=== PATIENT | female | born 1945 | race Caucasian/White ===

== ENCOUNTER 2019-12-13 18:02 | Observation (INO) | payer MEDICARE, OTHER ==
[2019-12-13 19:28] LABS: ABSOLUTE EOSINOPHILS # (AUTO) 0.1 10^3/uL (0.0-0.6); ABSOLUTE LYMPHOCYTES (AUTO) 1.8 10^3/uL (0.5-4.7); ABSOLUTE MONOCYTES (AUTO) 0.4 10^3/uL (0.1-1.4); ABSOLUTE NEUT (AUTO) 3.1 10^3/uL (1.7-8.2); BASOPHILS % (AUTO) 0.7 % (0-2); EOSINOPHILS % (AUTO) 1.7 % (0-6); HEMATOCRIT 32.6 % (36.0-47.0); LYMPHOCYTES % (AUTO) 33.3 % (13-45); MEAN CORPUSCULAR HEMOGLOBIN 31.7 pg (27.0-33.4); MEAN CORPUSCULAR HGB CONC 33.8 g/dL (32.0-36.0); MEAN CORPUSCULAR VOLUME 94 fl (80-97); MONOCYTES % (AUTO) 7.7 % (3-13); PLATELET COUNT 267 10^3/uL (150-450); RED BLOOD COUNT 3.47 10^6/uL (3.72-5.28); RED CELL DISTRIBUTION WIDTH 14.6 % (11.5-14.0); SEGMENTED NEUTROPHILS % (AUTO) 56.6 % (42-78); TOTAL CELLS COUNTED % (AUTO) 100 %; WHITE BLOOD COUNT 5.4 10^3/uL (4.0-10.5)
[2019-12-13 19:43] LABS: ALBUMIN 3.3 g/dL (3.5-5.0); ALKALINE PHOSPHATASE 178 U/L (38-126); ANION GAP 9 (5-19); ASPARTATE AMINO TRANSFERASE 34 U/L (14-36); BILIRUBIN,TOTAL 0.2 mg/dL (0.2-1.3); BLOOD UREA NITROGEN 21 mg/dL (7-20); CALCIUM 8.2 mg/dL (8.4-10.2); CARBON DIOXIDE 24 mmol/L (22-30); CHLORIDE 100 mmol/L (98-107); GLUCOSE 326 mg/dL (75-110); POTASSIUM 4.3 mmol/L (3.6-5.0); TOTAL PROTEIN 6.7 g/dL (6.3-8.2)
[2019-12-13] MEDS ORDERED: NORMAL SALINE 1000 ML 1,000 ML IV ONE ×2 (20:12→20:42)
--- NOTE | 2019-12-13 20:12 | ER Document Report ---
ED General - General Chief Complaint: High Blood Sugar Stated Complaint: HYPERGLYCEMIA Time Seen by Provider: 12/13/19 20:10 Mode of Arrival: Medic Information source: Patient TRAVEL OUTSIDE OF THE [place] IN LAST 30 DAYS: No - HPI Onset: Other - over the last 1-2 days Onset/Duration: Gradual Quality of pain: Achy Severity: Moderate Pain Level: 1 Associated symptoms: Body/muscle aches, Chills, Fever Exacerbated by: Denies Relieved by: Denies Similar symptoms previously: No Recently seen / treated by doctor: No Notes: 74 year old female with a history of DM, HTN, COPD, Arthritis brought to the ER by EMS for generalized weakness, hyperglycemia, and concern of possible having a UTI/kidney infection. The patient has been taking her medications as prescribed and she says her blood sugar only was high today. One read at home was above 500. The patient says she has been around someone with the Flu and she is having some mild body aches, chills, and subjective fevers. The patient lives at home with her daughter who is currently out of town in [place]. The patient usually cares for herself. - Related Data Allergies/Adverse Reactions: Penicillins Allergy (Verified 12/13/19 18:13) Home Medications: Lantus, Humalog, Omeprazole, metformin, Duloetine, Metropolol, mitrazipine, atorovastatin, risperidone, mematine Past Medical History - General Information source: Patient - Social History Smoking Status: Former Smoker Chew tobacco use (# tins/day): No Frequency of alcohol use: None Drug Abuse: None Lives with: Family - live with her daughter Family History: Reviewed & Not Pertinent Patient has suicidal ideation: No Patient has homicidal ideation: No - Past Medical History Cardiac Medical History: Reports: Hx Hypertension Pulmonary Medical History: Reports: Hx COPD Denies: Hx Tuberculosis Endocrine Medical History: Reports: Hx Diabetes Mellitus Type 2 Musculoskeletal Medical History: Reports Hx Arthritis Past Surgical History: Reports: Hx Section - x2, Hx Cholecystectomy, Hx Hysterectomy, Hx Tonsillectomy. Denies: Hx Appendectomy, Hx Bowel Surgery, Hx Coronary Artery Bypass Graft, Hx Gastric Bypass Surgery, Hx Herniorrhaphy, Hx Mastectomy, Hx Pacemaker, Hx Tubal Ligation - Immunizations Hx Diphtheria, Pertussis, Tetanus Vaccination: Yes Hx Pneumococcal Vaccination: 08/10/11 Review of Systems - Review of Systems Constitutional: Chills, Fever, Other - high blood sugars EENT: No symptoms reported Cardiovascular: No symptoms reported Respiratory: No symptoms reported Gastrointestinal: No symptoms reported Genitourinary: Dysuria, Frequency, Urgency Female Genitourinary: No symptoms reported Musculoskeletal: Other - body aches Skin: No symptoms reported Hematologic/Lymphatic: No symptoms reported Neurological/Psychological: No symptoms reported -: Yes All other systems reviewed and negative Physical Exam - Vital signs Vitals: Temp Pulse Resp BP Pulse Ox 98.2 F 76 18 140/78 H 98 12/13/19 18:20 12/13/19 18:20 12/13/19 18:20 12/13/19 18:20 12/13/19 18:20 - Notes Notes: GENERAL: Well-appearing, well-nourished and in no acute distress. HEAD: Atraumatic, normocephalic. EYES: Pupils equal round and reactive to light, extraocular movements intact, sclera anicteric, conjunctiva are normal. ENT: TMs normal, nares patent, oropharynx clear without exudates. Moist mucous membranes. NECK: Normal range of motion, supple without lymphadenopathy or JVD. LUNGS: Breath sounds clear to auscultation bilaterally and equal. No wheezes rales or rhonchi. HEART: Regular rate and rhythm without murmurs, rubs or gallops. ABDOMEN: Soft, nontender, normoactive bowel sounds. No guarding, no rebound. No masses appreciated. EXTREMITIES: Normal range of motion, no pitting or edema. No clubbing or cyanosis. NEUROLOGICAL: Cranial nerves II through XII grossly intact. Normal speech, normal gait. PSYCH: Normal mood, normal affect. SKIN: Warm, Dry, normal turgor, no rashes or lesions noted. Course - Re-evaluation Re-evalutation: 12/13/19 21:25 The patient has a UTI and subsequent hyperglycemia and acute kidney injury. The patient was treated in the ER with IV Fluids and IV Rocephin. Patient is slightly confused/delirious so will seek an OBs admission at this time. 12/14/19 03:[address] Reyez refused to the admit the patient because he felt the patient did not meet inpatient criteria. Will therefore hold the patient in the ER as a social hold given her family apparently has concerns about her caring for herself at home. Patient will need to be treated with antibiotics to cover for UTI pathogens if she is discharged from the ER after case management sees her. Patient signed out to oncoming ER provider at shift change. - Vital Signs Vital signs: Temp Pulse Resp BP Pulse Ox 98.2 F 76 18 140/78 H 98 12/13/19 18:20 12/13/19 18:20 12/13/19 18:20 12/13/19 18:20 12/13/19 18:20 - Laboratory Result Diagrams: 12/13/19 19:06 12/13/19 19:06 Laboratory results interpreted by me: 12/13/19 12/13/19 12/13/19 18:30 19:04 19:06 RBC 3.47 L Hgb 11.0 L Hct 32.6 L RDW 14.6 H Sodium BUN Creatinine Est GFR ( Amer) Est GFR (MDRD) Non-Af Glucose POC Glucose 393 H Calcium Alkaline Phosphatase Albumin Urine Glucose (UA) >=500 H Urine Blood SMALL H Ur Leukocyte Esterase LARGE H 12/13/19 12/13/19 19:06 21:30 RBC Hgb Hct RDW Sodium 133.0 L BUN 21 H Creatinine 1.45 H Est GFR ( Amer) 43 L Est GFR (MDRD) Non-Af 35 L Glucose 326 H POC Glucose 330 H Calcium 8.2 L Alkaline Phosphatase 178 H Albumin 3.3 L Urine Glucose (UA) Urine Blood Ur Leukocyte Esterase Discharge - Discharge Clinical Impression: Hyperglycemia UTI (urinary tract infection) Qualifiers: Urinary tract infection type: site unspecified Hematuria presence: without hematuria Qualified Code(s): N39.0 - Urinary tract infection, site not specified Acute kidney failure Qualifiers: Acute renal failure type: unspecified Qualified Code(s): N17.9 - Acute kidney failure, unspecified Condition: Stable Disposition: HOME, SELF-CARE
[2019-12-13 20:46] LABS: APPEARANCE,URINE CLOUDY; BILIRUBIN,URINE NEGATIVE (NEGATIVE); COLOR,URINE YELLOW; GLUCOSE, URINE >=500 mg/dL (NEGATIVE); KETONES,URINE NEGATIVE (NEGATIVE); LEUKOCYTE ESTERASE,URINE LARGE (NEGATIVE); NITRITE,URINE NEGATIVE (NEGATIVE); PROTEIN,URINE NEGATIVE (NEGATIVE); URINE SPECIFIC GRAVITY 1.006; UROBILINOGEN,URINE NEGATIVE mg/dL (<2.0)
[2019-12-13] MEDS ORDERED: CEFTRIAXONE INJ 1000 MG VIAL IV ONE (21:24)
[2019-12-13 21:42] LABS: A TYPE INFLUENZA AG NEGATIVE (NEGATIVE); B INFLUENZA AG NEGATIVE (NEGATIVE)
[2019-12-14] MEDS ORDERED: INSULIN REG, HUMAN 100 UNIT/ML 3 ML VIAL (PYX) SUBCUT ONE (05:11)
[2019-12-14] MEDS ORDERED: ONDANSETRON 4 MG TAB.RAPDIS PO PRN (08:37)
[2019-12-14] MEDS ORDERED: MAG HYDROX/AL HYDROX/SIMETH SUSP 30 ML UDCUP PO PRN (08:37)
[2019-12-14] MEDS ORDERED: IPRATROPIUM/ALBUTEROL 0.5-2.5 MG/3 ML AMPUL NEB PRN (08:37)
[2019-12-14] MEDS ORDERED: ZOLPIDEM TARTRATE 5 MG TABLET PO PRN (08:37)
[2019-12-14] MEDS ORDERED: DEXTROSE 50%-WATER 25 GM/50 ML DISP.SYRIN IV PRN ×2 (08:44)
[2019-12-14] MEDS ORDERED: DEXTROSE 40% GEL 15 GM TUBE PO PRN ×2 (08:44)
[2019-12-14] MEDS ORDERED: GLUCAGON,HUMAN RECOMB 1 MG INJ IM PRN (08:44)
--- NOTE | 2019-12-14 08:53 | PDOC H&P ---
History of Present Illness Admission Date/PCP: 12/13/19 22:06 Patient complains of: Urinary tract infection, uncontrolled diabetes mellitus type 2 History of Present Illness: AMAURY DOMINGO is a 74 year old female with history of myocardial infarction, hypertension, COPD, gastroesophageal reflux disease, depression and diabetes mellitus. She states that yesterday she began having suprapubic discomfort that radiated bilaterally. She denied any fevers, chills but does feel thirsty. She admits to some memory loss but she does have underlying dementia and she does not believe this is any worse than her baseline. She denies dysuria and admits that with her diabetes she has had urinary tract infections in the past. It is also probable that an acute infection could worsen her dementia. Past Medical History Cardiac Medical History: Reports: Myocardial Infarction, Hypertension Denies: Atrial Fibrillation, Congestive Heart Failure Pulmonary Medical History: Reports: Chronic Obstructive Pulmonary Disease (COPD) Denies: Tuberculosis EENT Medical History: Denies: Ears, Nose, Throat Neurological Medical History: Denies: Ischemic CVA Endocrine Medical History: Reports: Diabetes Mellitus Type 2 GI Medical History: Reports: Gastroesophageal Reflux Disease Musculoskeltal Medical History: Reports: Arthritis Psychiatric Medical History: Reports: Dementia, Depression Denies: Alcohol Dependency, Tobacco Dependency Traumatic Medical History: Reports: None Hematology: Denies: Anemia, Bleeding Tendencies Infectious Medical History: Reports: None Past Surgical History Past Surgical History: Reports: Appendectomy, Section - x2, Cholecystectomy, Hysterectomy, Tonsillectomy Denies: Coronary Artery Bypass Graft, Gastric Bypass Surgery, Herniorrhaphy, Mastectomy, Pacemaker, Tubal Ligation Social History Information Source: Patient, [facility] Records Lives with: Family - live with her daughter Smoking Status: Former Smoker Electronic Cigarette use?: No Frequency of Alcohol Use: None Hx Recreational Drug Use: No Hx Prescription Drug Abuse: No - Advance Directive Resuscitation Status: Do Not Resuscitate Family History Family History: CAD, DM Parental Family History Reviewed: Yes Children Family History Reviewed: Yes Sibling(s) Family History Reviewed.: Yes Medication/Allergy Home Medications: Atorvastatin Calcium [Lipitor 40 mg Tablet] 40 mg PO DAILY 12/14/19 Duloxetine HCl [Cymbalta 20 Mg Capsule.Dr] 20 mg PO DAILY 12/14/19 Ergocalciferol (Vitamin D2) [Vitamin D2] 50 mcg PO WE@1000 02/04/20 Insulin Glargine,Hum.rec.anlog [Lantus Insulin 100 Unit/1 ml 10 ml] 8 unit SUBCUT QHS 12/14/19 Insulin Lispro [Humalog Kwikpen U-100] 0 unit SQ .PER SLIDING SCALE 12/14/19 Memantine HCl [Namenda] 5 mg PO DAILY 12/14/19 Metformin HCl 1,000 mg PO Q12 12/14/19 Metoprolol Succinate [Toprol Xl 25 mg Tab.sr] 25 mg PO DAILY 12/14/19 Mirtazapine [Remeron 15 mg Tablet] 15 mg PO QHS 12/14/19 Omeprazole 20 mg PO DAILY 12/14/19 Allergies/Adverse Reactions: Penicillins Allergy (Verified 12/13/19 18:13) Review of Systems Constitutional: ABSENT: chills, fever(s), weight gain, weight loss Eyes: ABSENT: visual disturbances Ears: ABSENT: hearing changes Nose, Mouth, and Throat: ABSENT: headache(s), mouth pain, sore throat Cardiovascular: ABSENT: chest pain, dyspnea on exertion, edema, palpitations Respiratory: ABSENT: cough, dyspnea, hemoptysis, sputum Gastrointestinal: ABSENT: abdominal pain, coffee ground emesis, constipation, diarrhea, nausea, vomiting Genitourinary: ABSENT: difficulty urinating, dysuria, hematuria Musculoskeletal: ABSENT: back pain, deformity, joint swelling Integumentary: ABSENT: diaphoresis, erythema, rash Neurological: PRESENT: abnormal gait - Slightly unsteady gait, memory loss. ABSENT: abnormal movements, syncope, tremor(s), vertigo Psychiatric: PRESENT: depression. ABSENT: anxiety Endocrine: ABSENT: cold intolerance, heat intolerance, polydipsia, polyphagia, polyuria Hematologic/Lymphatic: ABSENT: easy bleeding, easy bruising, lymphadenopathy Physical Exam Vital Signs: Temp Pulse Resp BP Pulse Ox 98.4 F 89 16 150/62 H 100 12/14/19 07:50 12/14/19 07:50 12/14/19 04:13 12/14/19 07:50 12/14/19 07:50 Intake & Output 12/13/19 12/14/19 12/15/19 06:59 06:59 06:59 Intake Total 1999 Balance 1999 Weight 72.121 kg General appearance: PRESENT: no acute distress, cooperative, well-developed Head exam: PRESENT: atraumatic, normocephalic Eye exam: PRESENT: conjunctiva pink, EOMI. ABSENT: scleral icterus Ear exam: PRESENT: normal external ear exam. ABSENT: bleeding, drainage Mouth exam: PRESENT: dry mucosa, neck supple, tongue midline Teeth exam: ABSENT: poor dentation Neck exam: PRESENT: carotid bruit - Left. ABSENT: lymphadenopathy, tenderness, tracheostomy Respiratory exam: PRESENT: clear to auscultation jesus, symmetrical, unlabored. ABSENT: accessory muscle use, rales, rhonchi, tachypnea, wheezes Cardiovascular exam: PRESENT: RRR, +S1, +S2, systolic murmur - 2/6, other - S4 GI/Abdominal exam: PRESENT: normal bowel sounds, soft, other - Mild bilateral flank pain to palpation. ABSENT: distended, guarding, tenderness Rectal exam: PRESENT: deferred Gentrourinary exam: ABSENT: indwelling catheter Extremities exam: PRESENT: full ROM. ABSENT: joint swelling, pedal edema Musculoskeletal exam: PRESENT: ambulatory, normal inspection. ABSENT: deformity Neurological exam: PRESENT: alert, altered, oriented to person, oriented to situation - She does know that she is staying in the hospital overnight., other - Definitely chronic memory loss Psychiatric exam: PRESENT: appropriate affect. ABSENT: agitated, anxious Focused psych exam: ABSENT: delusional, restlessness Skin exam: PRESENT: dry, normal color, warm. ABSENT: rash Results Laboratory Results: 12/13/19 19:06 12/13/19 19:06 12/13/19 12/13/19 12/13/19 19:04 19:06 19:06 WBC 5.4 RBC 3.47 L Hgb 11.0 L Hct 32.6 L MCV 94 MCH 31.7 MCHC 33.8 RDW 14.6 H Plt Count 267 Seg Neutrophils % 56.6 Sodium 133.0 L Potassium 4.3 Chloride 100 Carbon Dioxide 24 Anion Gap 9 BUN 21 H Creatinine 1.45 H Est GFR ( Amer) 43 L Glucose 326 H Calcium 8.2 L Total Bilirubin 0.2 AST 34 Alkaline Phosphatase 178 H Total Protein 6.7 Albumin 3.3 L Urine Color YELLOW Urine Appearance CLOUDY Urine pH 6.0 Ur Specific [place] 1.006 Urine Protein NEGATIVE Urine Glucose (UA) >=500 H Urine Ketones NEGATIVE Urine Blood SMALL H Urine Nitrite NEGATIVE Ur Leukocyte Esterase LARGE H Urine WBC (Auto) >182 Urine RBC (Auto) 3 Assessment and Plan - Diagnosis (1) UTI (urinary tract infection) Qualifiers: Urinary tract infection type: site unspecified Hematuria presence: without hematuria Qualified Code(s): N39.0 - Urinary tract infection, site not specified Is this a current diagnosis for this admission?: Yes Plan: Blood and urine cultures pending. Continue Rocephin at this time. (2) Acute kidney failure Qualifiers: Acute renal failure type: unspecified Qualified Code(s): N17.9 - Acute kidney failure, unspecified Is this a current diagnosis for this admission?: Yes Plan: Her serum creatinine is elevated. The last serum creatinine that I have in the computer is from 2011 and it was normal. This is either an acute issue with her infection or it may be in fact chronic kidney disease that has developed over the last several years. We will continue to monitor renal function. (3) Hyperglycemia due to type 2 diabetes mellitus Qualifiers: Diabetes mellitus intermodal dispatcher insulin use: with intermodal dispatcher use Qualified Code(s): E11.65 - Type 2 diabetes mellitus with hyperglycemia; Z79.4 - long term (current) use of insulin Is this a current diagnosis for this admission?: Yes Plan: We will utilize her metformin as well as Lantus and sliding scale coverage to manage her diabetes. We will utilize diabetic diet as well. Continue Accu- Cheks at meals and at bedtime (4) Hypertension Qualifiers: Hypertension type: essential hypertension Qualified Code(s): I10 - Essential (primary) hypertension Is this a current diagnosis for this admission?: Yes Plan: Pharmacy has done a medication reconciliation and she in fact has been getting her medications [facility]. Although she agreed to every medication that was listed in the computer she in fact is only taking several medications. She is on metoprolol. I will add low-dose losartan due to her diabetes and slightly decreased renal function. We will continue to monitor her vital signs and adjust medications if indicated (5) Coronary artery disease Qualifiers: Coronary Disease-Associated Artery/Lesion type: [place] artery [place] vs. transplanted heart: [place] heart Associated angina: without angina Qualified Code(s): I25.10 - Atherosclerotic heart disease of [place] coronary artery without angina pectoris Is this a current diagnosis for this admission?: Yes Plan: We will continue the patient's atorvastatin and Aggrenox at this time as well as her metoprolol. Monitor for any signs or symptoms of acute coronary syndrome. (6) Alzheimer's dementia Qualifiers: Alzheimer's disease onset: unspecified onset Dementia behavioral disturbance: without behavioral disturbance Qualified Code(s): G30.9 - Alzheimer's disease, unspecified; F02.80 - Dementia in other diseases classified elsewhere without behavioral disturbance Is this a current diagnosis for this admission?: Yes Plan: Evidently the patient has had dementia for some time. She is on Namenda. She is not agitated. She did admit to some memory issues. An infection certainly could be causing a transient worsening of her dementia. Will reassess after the urinary tract infection is treated. (7) Depression Qualifiers: Depression Type: unspecified Qualified Code(s): F32.9 - Major depressive disorder, single episode, unspecified Is this a current diagnosis for this admission?: Yes Plan: We will continue current antidepressant regimen. (8) Gastroesophageal reflux disease Qualifiers: Esophagitis presence: without esophagitis Qualified Code(s): K21.9 - Gastro-esophageal reflux disease without esophagitis Is this a current diagnosis for this admission?: Yes Plan: Continue proton pump inhibitor therapy (9) Anxiety Is this a current diagnosis for this admission?: Yes Plan: Evidently she has been on benzodiazepine therapy in the past. At this time I will not order any scheduled or as needed benzodiazepines. She is on Remeron and duloxetine. If she does exhibit breakthrough anxiety medications will be available. If she exhibits sundowning we may try small doses of Risperdal. (10) Chronic obstructive pulmonary disease Qualifiers: COPD type: unspecified COPD Qualified Code(s): J44.9 - Chronic obstructive pulmonary disease, unspecified Is this a current diagnosis for this admission?: Yes Plan: The patient is asymptomatic. One medication list had Spiriva and Advair inhaler use. Her current list has no inhalers. We will monitor the patient. She does not require oxygen. I have ordered DuoNeb treatments every 6 hours if needed. - Plan Summary Summary: For the hyperglycemia likely secondary to urinary tract infection she will be on antibiotics, Accu-Cheks, Lantus, metformin and sliding scale coverage. If medically stable consider discharge home tomorrow. She may need a memory care unit. - Time Time Spent with patient: 35 or more minutes Medications reviewed and adjusted accordingly: Yes Anticipated discharge: Home with Homehealth, Other - Or possible memory care facility Within: within 48 hours
--- NOTE | 2019-12-14 08:55 | ADVANCED CARE ---
Attendance: The patient has discussed her CODE STATUS with her . He has . She requests DNR status.
[2019-12-14] MEDS: DOCUSATE SODIUM 100 MG CAPSULE PO SCH ×2 (09:34→17:19)
[2019-12-14] MEDS: PANTOPRAZOLE SODIUM 40 MG TABLET.DR PO SCH (09:39)
[2019-12-14] MEDS ORDERED: METFORMIN HCL 500 MG TABLET PO ONE (09:45)
[2019-12-14] MEDS ORDERED: ASPIRIN/DIPYRIDAMOLE 25-200 MG 1 CAP.SR CPMP.12HR PO ONE (09:45)
[2019-12-14] MEDS ORDERED: AMLODIPINE BESYLATE 10 MG TABLET PO ONE (09:45)
[2019-12-14] MEDS ORDERED: METOPROLOL SUCCINATE 25 MG TAB.SR.24H PO ONE (09:45)
[2019-12-14] MEDS: INSULIN REG, HUMAN 100 UNIT/ML 3 ML VIAL (PYX) SUBCUT SCH ×3 (15:46→22:38)
[2019-12-14] MEDS: HEPARIN SOD (PORCINE) 5,000 UNIT/ML 1 ML VIAL SUBCUT SCH ×2 (17:05→22:29)
[2019-12-14] MEDS: NORMAL SALINE 1000 ML 1,000 ML IV PRN (17:26)
[2019-12-14] MEDS ORDERED: INSULIN GLARGINE,HUM.REC.ANLOG 1,000 UNIT/10 ML VIAL SUBCUT SCH (22:00)
[2019-12-14] MEDS ORDERED: INSULIN GLARGINE,HUM.REC.ANLOG 1,000 UNIT/10 ML VIAL (PYX) SUBCUT ONE (22:23)
[2019-12-14] MEDS: MIRTAZAPINE 15 MG TABLET PO SCH (22:25)
[2019-12-14] MEDS: METFORMIN HCL 500 MG TABLET PO SCH (22:25)
[2019-12-14] MEDS: ACETAMINOPHEN 325 MG TABLET PO PRN (22:35)
[2019-12-15] MEDS: PANTOPRAZOLE SODIUM 40 MG TABLET.DR PO SCH (05:41)
[2019-12-15] MEDS: HEPARIN SOD (PORCINE) 5,000 UNIT/ML 1 ML VIAL SUBCUT SCH ×3 (05:41→22:07)
[2019-12-15] MEDS: NORMAL SALINE 1000 ML 1,000 ML IV PRN ×2 (05:44→20:08)
[2019-12-15 06:53] LABS: ANION GAP 12 (5-19); BLOOD UREA NITROGEN 17 mg/dL (7-20); CALCIUM 8.6 mg/dL (8.4-10.2); CARBON DIOXIDE 23 mmol/L (22-30); CHLORIDE 104 mmol/L (98-107); GLUCOSE 193 mg/dL (75-110); POTASSIUM 4.6 mmol/L (3.6-5.0)
[2019-12-15] MEDS: INSULIN REG, HUMAN 100 UNIT/ML 3 ML VIAL (PYX) SUBCUT SCH ×4 (08:10→21:59)
[2019-12-15] MEDS: METFORMIN HCL 500 MG TABLET PO SCH ×2 (09:29→21:58)
[2019-12-15] MEDS: MEMANTINE HCL 10 MG TABLET PO SCH (09:29)
[2019-12-15] MEDS: ATORVASTATIN CALCIUM 40 MG TABLET PO SCH (09:30)
[2019-12-15] MEDS: DOCUSATE SODIUM 100 MG CAPSULE PO SCH ×2 (09:30→18:09)
[2019-12-15] MEDS: CEFTRIAXONE 1 GM/D5W RTU 1 GM/50 ML RTUPB IV SCH (09:30)
[2019-12-15] MEDS: LOSARTAN POTASSIUM 25 MG TABLET PO SCH (09:30)
[2019-12-15] MEDS: DULOXETINE HCL 20 MG CAPSULE.DR PO SCH (09:39)
[2019-12-15] MEDS ORDERED: MEMANTINE HCL 10 MG TABLET PO SCH (10:00)
[2019-12-15] MEDS ORDERED: METOPROLOL SUCCINATE 25 MG TAB.SR.24H PO SCH (10:00)
[2019-12-15] MEDS ORDERED: (PENDING PHARMACY ID) (Memantine Hcl [Namenda] 5 MG) PO SCH (10:00)
--- NOTE | 2019-12-15 20:45 | PDOC PROGRESS REPORT ---
Subjective Progress Note for:: 12/15/19 Subjective:: The patient is in good spirits. Her daughter visited earlier. The had a long discussion and the patient informed me that she and her daughter will be looking into long-term placement after this discharge. Urine culture is growing gram- negative bacilli. One blood culture set is growing staph but it is a coagulase negative staph and most likely a contaminant. Reason For Visit: UTI Physical Exam Vital Signs: Temp Pulse Resp BP Pulse Ox 98.5 F 87 18 148/69 H 100 12/15/19 12:00 12/15/19 13:07 12/15/19 13:07 12/15/19 12:00 12/15/19 12:00 Intake & Output 12/14/19 12/15/19 12/16/19 06:59 06:59 06:59 Intake Total 1999 1360 2140 Output Total 1 Balance 1999 1359 2140 Weight 72.121 kg 53.3 kg General appearance: PRESENT: no acute distress, cooperative, well-developed Head exam: PRESENT: atraumatic, normocephalic Respiratory exam: PRESENT: clear to auscultation jesus, symmetrical, unlabored. ABSENT: accessory muscle use, rales, rhonchi, tachypnea, wheezes Cardiovascular exam: PRESENT: RRR, +S1, +S2 GI/Abdominal exam: PRESENT: normal bowel sounds, soft. ABSENT: distended, guarding, tenderness Rectal exam: PRESENT: deferred Gentrourinary exam: ABSENT: indwelling catheter Extremities exam: ABSENT: pedal edema Musculoskeletal exam: PRESENT: ambulatory Neurological exam: PRESENT: alert, awake, oriented to person, oriented to situation, CN II-XII grossly intact Psychiatric exam: PRESENT: appropriate affect. ABSENT: agitated, anxious Results Laboratory Results: 12/13/19 19:06 12/15/19 05:22 12/15/19 05:22 Sodium 138.7 Potassium 4.6 Chloride 104 Carbon Dioxide 23 Anion Gap 12 BUN 17 Creatinine 1.68 H Est GFR ( Amer) 36 L Glucose 193 H Calcium 8.6 12/13/19 22:53 Blood Blood Culture (PCR) - Final Staphylococcus Species Assessment and Plan - Diagnosis (1) UTI (urinary tract infection) Qualifiers: Urinary tract infection type: site unspecified Hematuria presence: without hematuria Qualified Code(s): N39.0 - Urinary tract infection, site not specified Is this a current diagnosis for this admission?: Yes Plan: Gram-negative bacilli growing. The patient reports that she has had urinary tract infections with E. coli in the past. She seems improved on the ceftriaxone and I will wait for sensitivities (should be available tomorrow) and then change to oral antibiotic prior to discharge. (2) Acute kidney failure Qualifiers: Acute renal failure type: unspecified Qualified Code(s): N17.9 - Acute kidney failure, unspecified Is this a current diagnosis for this admission?: Yes Plan: The patient is receiving IV fluids. It has been a long time since her last serum creatinine was checked. Over the last few years she could have had a progression of disease from normal renal function to chronic kidney disease secondary to diabetes. I will recheck renal function studies tomorrow. This may be her new baseline however and in fact not necessarily an acute change. (3) Hyperglycemia due to type 2 diabetes mellitus Qualifiers: Diabetes mellitus chcf insulin use: with terminal system operator use Qualified Code(s): E11.65 - Type 2 diabetes mellitus with hyperglycemia; Z79.4 - FPC (current) use of insulin Is this a current diagnosis for this admission?: Yes Plan: She remains on metformin. I will increase her Lantus to 12 units at bedtime. Continue sliding scale. (4) Hypertension Qualifiers: Hypertension type: essential hypertension Qualified Code(s): I10 - Essential (primary) hypertension Is this a current diagnosis for this admission?: Yes Plan: Blood pressure is not ideally controlled however I will not make changes at this time but rather monitor her vital signs. (5) Coronary artery disease Qualifiers: Coronary Disease-Associated Artery/Lesion type: [place] artery [place] vs. transplanted heart: [place] heart Associated angina: without angina Qualified Code(s): I25.10 - Atherosclerotic heart disease of [place] coronary artery without angina pectoris Is this a current diagnosis for this admission?: Yes Plan: Stable. Continue current regimen. No signs of acute coronary syndrome. (6) Alzheimer's dementia Qualifiers: Alzheimer's disease onset: unspecified onset Dementia behavioral dist urbance: without behavioral disturbance Qualified Code(s): G30.9 - Alzheimer's disease, unspecified; F02.80 - Dementia in other diseases classified elsewhere without behavioral disturbance Is this a current diagnosis for this admission?: Yes Plan: Continue Namenda. Patient informs me that her daughter will be looking for long-term placement for the patient after discharge. She in fact exhibited good insight and is in agreement with this plan. (7) Depression Qualifiers: Depression Type: unspecified Qualified Code(s): F32.9 - Major depressive disorder, single episode, unspecified Is this a current diagnosis for this admission?: Yes Plan: Continue Remeron (8) Gastroesophageal reflux disease Qualifiers: Esophagitis presence: without esophagitis Qualified Code(s): K21.9 - Gastro-esophageal reflux disease without esophagitis Is this a current diagnosis for this admission?: Yes Plan: Continue proton pump inhibitor (9) Anxiety Is this a current diagnosis for this admission?: Yes Plan: Appears to be well-controlled with the Remeron. (10) Chronic obstructive pulmonary disease Qualifiers: COPD type: unspecified COPD Qualified Code(s): J44.9 - Chronic obstructive pulmonary disease, unspecified Is this a current diagnosis for this admission?: Yes Plan: Stable at this time. Duo nebs available as needed. No scheduled inhaler therapy is required. (11) Blood bacterial culture positive Is this a current diagnosis for this admission?: Yes Plan: 1 of the 2 sets of blood cultures drawn grew coagulase negative staph. The methicillin-resistant study was positive however it is a coagulase-negative staph and it is not methicillin-resistant staph aureus. Because it is only 1 set of the 2 drawn it is likely a contaminant. I will not add any antibiotics at this time but rather continue Rocephin. - Plan Summary Summary: For the hyperglycemia likely secondary to urinary tract infection she will be on antibiotics, Accu-Cheks, Lantus, metformin and sliding scale coverage. If medically stable consider discharge home tomorrow. She may need a memory care unit. - Time Time Spent with patient: 15-24 minutes Medications reviewed and adjusted accordingly: Yes Anticipated discharge: Home Within: within 24 hours
[2019-12-15] MEDS: METOPROLOL SUCCINATE 25 MG TAB.SR.24H PO SCH (21:58)
[2019-12-15] MEDS: MIRTAZAPINE 15 MG TABLET PO SCH (21:58)
[2019-12-15] MEDS: INSULIN GLARGINE,HUM.REC.ANLOG 1,000 UNIT/10 ML VIAL SUBCUT SCH (21:59)
[2019-12-15] MEDS ORDERED: INSULIN GLARGINE,HUM.REC.ANLOG 1,000 UNIT/10 ML VIAL SUBCUT SCH (22:00)
[2019-12-15] MEDS: AMLODIPINE BESYLATE 5 MG TABLET PO SCH (22:00)
[2019-12-16 04:53] LABS: ANION GAP 14 (5-19); BLOOD UREA NITROGEN 25 mg/dL (7-20); CALCIUM 9.1 mg/dL (8.4-10.2); CARBON DIOXIDE 20 mmol/L (22-30); CHLORIDE 105 mmol/L (98-107); GLUCOSE 135 mg/dL (75-110); POTASSIUM 4.8 mmol/L (3.6-5.0)
[2019-12-16] MEDS: HEPARIN SOD (PORCINE) 5,000 UNIT/ML 1 ML VIAL SUBCUT SCH ×3 (05:50→23:08)
[2019-12-16] MEDS: PANTOPRAZOLE SODIUM 40 MG TABLET.DR PO SCH (05:50)
[2019-12-16] MEDS: INSULIN REG, HUMAN 100 UNIT/ML 3 ML VIAL (PYX) SUBCUT SCH ×4 (09:39→23:06)
[2019-12-16] MEDS: LOSARTAN POTASSIUM 25 MG TABLET PO SCH (09:44)
[2019-12-16] MEDS: DOCUSATE SODIUM 100 MG CAPSULE PO SCH ×2 (09:44→17:04)
[2019-12-16] MEDS: DULOXETINE HCL 20 MG CAPSULE.DR PO SCH (09:44)
[2019-12-16] MEDS: METFORMIN HCL 500 MG TABLET PO SCH ×2 (09:44→23:05)
[2019-12-16] MEDS: MEMANTINE HCL 10 MG TABLET PO SCH (09:44)
[2019-12-16] MEDS: ATORVASTATIN CALCIUM 40 MG TABLET PO SCH (09:44)
[2019-12-16] MEDS: NORMAL SALINE 1000 ML 1,000 ML IV PRN (09:45)
[2019-12-16] MEDS: CEFTRIAXONE 1 GM/D5W RTU 1 GM/50 ML RTUPB IV SCH (09:45)
[2019-12-16] MEDS: METOPROLOL SUCCINATE 25 MG TAB.SR.24H PO SCH ×2 (09:50→23:06)
--- NOTE | 2019-12-16 13:24 | PDOC DISCHARGE SUMMARY ---
Impression - Admit/DC Date/PCP Admission Date/Primary Care Provider: 12/13/19 22:06 Discharge Date: 12/16/19 - Discharge Diagnosis (1) UTI (urinary tract infection) Is this a current diagnosis for this admission?: Yes (2) Acute kidney failure Is this a current diagnosis for this admission?: Yes (3) Hyperglycemia due to type 2 diabetes mellitus Is this a current diagnosis for this admission?: Yes (4) Hypertension Is this a current diagnosis for this admission?: Yes (5) Coronary artery disease Is this a current diagnosis for this admission?: Yes (6) Alzheimer's dementia Is this a current diagnosis for this admission?: Yes (7) Depression Is this a current diagnosis for this admission?: Yes (8) Gastroesophageal reflux disease Is this a current diagnosis for this admission?: Yes (9) Anxiety Is this a current diagnosis for this admission?: Yes (10) Chronic obstructive pulmonary disease Is this a current diagnosis for this admission?: Yes (11) Blood bacterial culture positive Is this a current diagnosis for this admission?: Yes - Assessment Summary: For the hyperglycemia likely secondary to urinary tract infection she will be on antibiotics, Accu-Cheks, Lantus, metformin and sliding scale coverage. If medically stable consider discharge home tomorrow. She may need a memory care unit. 12/16/2019-urinary tract infection-complete antibiotics Kidneys-likely mild kidney failure secondary to diabetes. Stay well hydrated. Hypertension-modified medications to achieve good blood pressure control. 1+ blood culture coagulase-negative staph is a contaminant - Additional Information Resuscitation Status: Do Not Resuscitate Discharge Diet: Cardiac, Diabetic Discharge Activity: Activity As Tolerated Prescriptions: Losartan Potassium [Cozaar 25 mg Tablet] 25 mg PO DAILY 15 Days #15 tablet Cephalexin Monohydrate [Keflex 250 mg Capsule] 250 mg PO Q8 #30 capsule Amlodipine Besylate [Norvasc 5 mg Tablet] 5 mg PO QHS 15 Days #15 tablet Home Medications: Atorvastatin Calcium [Lipitor 40 mg Tablet] 40 mg PO DAILY 12/14/19 Duloxetine HCl [Cymbalta 20 mg Capsule.dr] 20 mg PO DAILY 12/14/19 Ergocalciferol (Vitamin D2) [Vitamin D2] 50 mcg PO WE@1000 12/14/19 Insulin Glargine,Hum.rec.anlog [Lantus Insulin 100 Unit/1 ml 10 ml] 8 unit SUBCUT QHS 12/14/19 Insulin Lispro [Humalog Kwikpen U-100] 0 unit SQ .PER SLIDING SCALE 12/14/19 Memantine HCl [Namenda] 5 mg PO DAILY 12/14/19 Metformin HCl 1,000 mg PO Q12 12/14/19 Metoprolol Succinate [Toprol Xl 25 mg Tab.sr] 25 mg PO DAILY 12/14/19 Mirtazapine [Remeron 15 mg Tablet] 15 mg PO QHS 12/14/19 Omeprazole 20 mg PO DAILY 12/14/19 Acetaminophen [Tylenol 325 mg Tablet] 650 mg PO Q4HP PRN tablet 12/16/19 Amlodipine Besylate [Norvasc 5 mg Tablet] 5 mg PO QHS 15 Days #15 tablet 12/16/19 Cephalexin Monohydrate [Keflex 250 mg Capsule] 250 mg PO Q8 #30 capsule 12/16/19 Losartan Potassium [Cozaar 25 mg Tablet] 25 mg PO DAILY 15 Days #15 tablet 12/16/19 History of Present Illiness History of Present Illness: AMAURY DOMINGO is a 74 year old female with history of myocardial infarction, hypertension, COPD, gastroesophageal reflux disease, depression and diabetes mellitus. She states that yesterday she began having suprapubic discomfort that radiated bilaterally. She denied any fevers, chills but does feel thirsty. She admits to some memory loss but she does have underlying dementia and she does not believe this is any worse than her baseline. She denies dysuria and admits that with her diabetes she has had urinary tract infections in the past. It is also probable that an acute infection could worsen her dementia. Hospital Course Hospital Course: The patient had an unremarkable hospital course. She was admitted to observation status for the cystitis. She does have underlying chronic comorbidities as well. After the first day the urine culture revealed gram- negative bacilli. She was on ceftriaxone. Additionally one blood culture bottle was positive but it was coagulase-negative staph and this is a contaminant. Today the sensitivities were available and the organism is sensitive to cephalexin. Despite her penicillin allergy she was tolerating the ceftriaxone without difficulty. I will discharge her on oral cephalexin. During hospitalization her confusion seemed to improve somewhat. She is likely back to her baseline. She was ambulating around the room without difficulty. She did report that her and her daughter discussed long-term placement. This can be pursued after discharge. Physical Exam Vital Signs: Temp Pulse Resp BP Pulse Ox 98.3 F 86 16 169/81 H 100 12/16/19 12:00 12/16/19 12:00 12/16/19 12:00 12/16/19 12:00 12/16/19 12:00 Intake & Output 12/15/19 12/16/19 12/17/19 06:59 06:59 06:59 Intake Total 1360 3790 50 Output Total 1 6 Balance 1359 3784 50 Weight 53.3 kg 50.6 kg Results Laboratory Results: WBC 5.4 10^3/uL (4.0-10.5) 12/13/19 19:06 RBC 3.47 10^6/uL (3.72-5.28) L 12/13/19 19:06 Hgb 11.0 g/dL (12.0-15.5) L 12/13/19 19:06 Hct 32.6 % (36.0-47.0) L 12/13/19 19:06 MCV 94 fl (80-97) 12/13/19 19:06 MCH 31.7 pg (27.0-33.4) 12/13/19 19:06 MCHC 33.8 g/dL (32.0-36.0) 12/13/19 19:06 RDW 14.6 % (11.5-14.0) H 12/13/19 19:06 Plt Count 267 10^3/uL (150-450) 12/13/19 19:06 Lymph % (Auto) 33.3 % (13-45) 12/13/19 19:06 [place] % (Auto) 7.7 % (3-13) 12/13/19 19:06 Eos % (Auto) 1.7 % (0-6) 12/13/19 19:06 Baso % (Auto) 0.7 % (0-2) 12/13/19 19:06 Absolute Neuts (auto) 3.1 10^3/uL (1.7-8.2) 12/13/19 19:06 Absolute Lymphs (auto) 1.8 10^3/uL (0.5-4.7) 12/13/19 19:06 Absolute Monos (auto) 0.4 10^3/uL (0.1-1.4) 12/13/19 19:06 Absolute Eos (auto) 0.1 10^3/uL (0.0-0.6) 12/13/19 19:06 Absolute Basos (auto) 0.0 10^3/uL (0.0-0.2) 12/13/19 19:06 Seg Neutrophils % 56.6 % (42-78) 12/13/19 19:06 Sodium 138.9 mmol/L (137-145) 12/16/19 04:03 Potassium 4.8 mmol/L (3.6-5.0) 12/16/19 04:03 Chloride 105 mmol/L (98-107) 12/16/19 04:03 Carbon Dioxide 20 mmol/L (22-30) L 12/16/19 04:03 Anion Gap 14 (5-19) 12/16/19 04:03 BUN 25 mg/dL (7-20) H 12/16/19 04:03 Creatinine 1.54 mg/dL (0.52-1.25) H 12/16/19 04:03 Est GFR ( Amer) 40 (>60) L 12/16/19 04:03 Est GFR (MDRD) Non-Af 33 (>60) L 12/16/19 04:03 Glucose 135 mg/dL (75-110) H 12/16/19 04:03 POC Glucose 188 mg/dL (70-110) H 12/16/19 11:32 Calcium 9.1 mg/dL (8.4-10.2) 12/16/19 04:03 Total Bilirubin 0.2 mg/dL (0.2-1.3) 12/13/19 19:06 Direct Bilirubin 0.0 mg/dL (0.0-0.4) 12/13/19 19:06 Neonat Total Bilirubin Not Reportable 12/13/19 19:06 Neonat Direct Bilirubin Not Reportable 12/13/19 19:06 Neonat Indirect Bili Not Reportable 12/13/19 19:06 AST 34 U/L (14-36) 12/13/19 19:06 ALT 17 U/L (<35) 12/13/19 19:06 Alkaline Phosphatase 178 U/L (38-126) H 12/13/19 19:06 Total Protein 6.7 g/dL (6.3-8.2) 12/13/19 19:06 Albumin 3.3 g/dL (3.5-5.0) L 12/13/19 19:06 Urine Color YELLOW 12/13/19 19:04 Urine Appearance CLOUDY 12/13/19 19:04 Urine pH 6.0 (5.0-9.0) 12/13/19 19:04 Ur Specific [place] 1.006 12/13/19 19:04 Urine Protein NEGATIVE mg/dL (NEGATIVE) 12/13/19 19:04 Urine Glucose (UA) >=500 mg/dL (NEGATIVE) H 12/13/19 19:04 Urine Ketones NEGATIVE mg/dL (NEGATIVE) 12/13/19 19:04 Urine Blood SMALL (NEGATIVE) H 12/13/19 19:04 Urine Nitrite NEGATIVE (NEGATIVE) 12/13/19 19:04 Urine Bilirubin NEGATIVE (NEGATIVE) 12/13/19 19:04 Urine Urobilinogen NEGATIVE mg/dL (<2.0) 12/13/19 19:04 Ur Leukocyte Esterase LARGE (NEGATIVE) H 12/13/19 19:04 Urine WBC (Auto) >182 /HPF 12/13/19 19:04 Urine RBC (Auto) 3 /HPF 12/13/19 19:04 Urine Bacteria (Auto) 2+ /HPF 12/13/19 19:04 Urine WBC Clumps FEW /HPF 12/13/19 19:04 Squamous Epi Cells Auto 1 /HPF 12/13/19 19:04 Urine Mucus (Auto) RARE /LPF 12/13/19 19:04 Urine Ascorbic Acid NEGATIVE (NEGATIVE) 12/13/19 19:04 Influenza A (Rapid) NEGATIVE (NEGATIVE) 12/13/19 21:11 Influenza B (Rapid) NEGATIVE (NEGATIVE) 12/13/19 21:11 Plan Health Concerns: The primary concern is the patient's advancing dementia. She has windows of excellent clarity and then will need redirection. She is already on Namenda. She reported that her family was going to pursue long-term placement and this would best be served in a memory care unit. This can be arranged as an outpatient since she has no skilled needs at this immediate time. Plan of Treatment: Complete antibiotic therapy as ordered. Additional antihypertensive medications added to her regimen Goals: Complete resolution of antibiotic therapy. Improved blood pressure control. Good control of diabetes and eventual placement in a memory care unit. Time Spent: Greater than 30 Minutes Stroke Is this a Stroke Patient?: No Acute Heart Failure - Is this a Heart Failure Patient?: No
[2019-12-16] MEDS: MIRTAZAPINE 15 MG TABLET PO SCH (23:05)
[2019-12-16] MEDS: AMLODIPINE BESYLATE 5 MG TABLET PO SCH (23:05)
[2019-12-16] MEDS: INSULIN GLARGINE,HUM.REC.ANLOG 1,000 UNIT/10 ML VIAL SUBCUT SCH (23:06)
[2019-12-17] MEDS: HEPARIN SOD (PORCINE) 5,000 UNIT/ML 1 ML VIAL SUBCUT SCH ×2 (05:40→15:09)
[2019-12-17] MEDS: PANTOPRAZOLE SODIUM 40 MG TABLET.DR PO SCH (06:14)
[2019-12-17] MEDS: INSULIN REG, HUMAN 100 UNIT/ML 3 ML VIAL (PYX) SUBCUT SCH ×2 (08:03→11:45)
[2019-12-17] MEDS: MEMANTINE HCL 10 MG TABLET PO SCH (09:33)
[2019-12-17] MEDS: METFORMIN HCL 500 MG TABLET PO SCH (09:33)
[2019-12-17] MEDS: METOPROLOL SUCCINATE 25 MG TAB.SR.24H PO SCH (09:33)
[2019-12-17] MEDS: ATORVASTATIN CALCIUM 40 MG TABLET PO SCH (09:33)
[2019-12-17] MEDS: DOCUSATE SODIUM 100 MG CAPSULE PO SCH (09:33)
[2019-12-17] MEDS: DULOXETINE HCL 20 MG CAPSULE.DR PO SCH (09:34)
[2019-12-17] MEDS: CEFTRIAXONE 1 GM/D5W RTU 1 GM/50 ML RTUPB IV SCH ×3 (09:34→10:46)
[2019-12-17] MEDS: LOSARTAN POTASSIUM 25 MG TABLET PO SCH (09:34)
[2019-12-17] MEDS: ACETAMINOPHEN 325 MG TABLET PO PRN (10:14)
[2019-12-17 13:00] VITALS: BP 103/85
== END 2019-12-17 15:41 | disposition home or self-care (01) ==
LOC: ER 18:02 → EH 22:06 → 4N 12-14 16:47
PROVIDERS: ADMIT Hospitalist; ATTEND Hospitalist
DX: N39.0 Urinary tract infection, site not specified (principal); N17.9 Acute kidney failure, unspecified; E11.65 Type 2 diabetes mellitus with hyperglycemia; I10 Essential (primary) hypertension; I25.10 Atherosclerotic heart disease of native coronary artery without angina pectoris; G30.9 Alzheimer's disease, unspecified; F02.80 Dementia in other diseases classified elsewhere, unspecified severity, without behavioral disturbance, psychotic disturbance, mood disturbance, and anxiety; F32.9 Major depressive disorder, single episode, unspecified; K21.9 Gastro-esophageal reflux disease without esophagitis; F41.9 Anxiety disorder, unspecified; J44.9 Chronic obstructive pulmonary disease, unspecified; R78.81 Bacteremia; R26.81 Unsteadiness on feet; R01.1 Cardiac murmur, unspecified; M19.90 Unspecified osteoarthritis, unspecified site; Z66 Do not resuscitate; Z79.899 Other long term (current) drug therapy; Z79.4 Long term (current) use of insulin; Z87.440 Personal history of urinary (tract) infections; Z88.0 Allergy status to penicillin; Z90.49 Acquired absence of other specified parts of digestive tract; Z90.710 Acquired absence of both cervix and uterus; Z87.891 Personal history of nicotine dependence
CPT/HCPCS: 99284; 96361; 96365; 36415 ×3; 87040 ×2; 87086; 82962 ×5; 85025; 87077; 87088; 80048 ×2; 80053; 81001; 87186; 87804; 87150 ×26; G0378 ×5; A9270 ×44; J1644 ×3; J0696 ×4; J7030 ×4; J1815; J3490